=== PATIENT | female | born 1975 | race Caucasian/White ===

== ENCOUNTER 2020-05-22 06:15 | Day surgery (SDC) | payer BC ==
[~2020-05-22] VITALS: Ht 165.1 cm; Wt 100.5 kg
[~2020-05-22 06:15] MED LIST: ATORVASTATIN CA80 MG PO; GLIPIZIDE10 MG PO; HYDROCHLOROTHIA25 MG PO; LANTUS SOL100 UNIT/1 SUB-Q; LEVOTHYROXINE100 MCG PO; LISINOPRIL-HCT1 EACH PO; METOPROLOL SUCC25 MG; METOPROLOL TAR100 MG PO; METOPROLOL TART50 MG PO; MIRALAX17 GM PO; MOBIC15 MG PO; NORCO 5-325 TA1 EACH PO; OSTERA TABLET1 EACH PO
[2020-05-22] MEDS ORDERED: HYDROCODON-ACE1 EA10 PO (08:27)
--- NOTE | 2020-05-22 08:31 | NUR ---
05/22/20 0831 Elena Pan 0824- PT ARRIVES TO PACU EASILY AROUSABLE TO VOICE. PT REPORTS NO PAIN OR NAUSEA. RESP EVEN AND UNLABORED. OXYGEN SAT HIGH 90'S TO 100% ON 6L VIA MASK. 0828- CBG 73. MIRIAN PACHECO CRNA AT THE BEDSIDE AND AWARE. 0830- DR. KWOK AT THE BEDSIDE TO TALK WITH THE PT.
--- NOTE | 2020-05-22 08:38 | NUR ---
PT ALERT, ORIENTED AND SEEMS PREPARED FOR TODAY. ALL QUESTIONS ASKED WERE ANSWERED. GAVE BLESSING, WILL FOLLOW NEEDED
--- NOTE | 2020-05-25 07:18 | OR ---
[facility] [address] [place], [place] [address] Signed DATE OF OPERATION: 05/22/2020 SURGEON: Lydia Mcelroy MD PREOPERATIVE DIAGNOSIS: Right index finger mass. POSTOPERATIVE DIAGNOSIS: Right index finger mass. PROCEDURE PERFORMED: Excision of mass, right hand. JUVENILE COUNSELOR: None. ANESTHESIA: Annemarie block. TOURNIQUET TIME: 20 minutes. BRIEF HISTORY: Flaca is a 44-year-old female with a progressively enlarging mass on the dorsum of the middle phalanx right index finger. It was painful and in the way. She wished to have it removed. Risks and benefits of operative treatment were discussed with her and she elected to proceed. We also discussed the adjacent osteophyte which we would take off. DESCRIPTION OF PROCEDURE: Once consent was obtained, she was taken to the operating room. After adequate anesthesia, the hand was prepped and draped in a standard sterile fashion. A longitudinal dorsal incision was made overlying the mass and carried through skin and subcutaneous tissue and carefully around the mass. The mass was then carefully dissected free of the surrounding soft tissue. It had displaced the central slip of the extensor tendon fair amount ulnarly. It was not densely adherent to any of the surrounding soft tissue. There was no apparent stalk from the DIP joint. It was excised and passed off in total. The osteophyte was then dissected free of soft tissue and was removed using a rongeur. The wound was copiously irrigated with normal saline, closed with 3-0 nylon. The digit was blocked with 0.25% plain Marcaine and the wound was dressed with Electronically Signed By: LYDIA MCELROY MD 05/25/20 0718 PATIENT NAME: FLACA RUBIO OPERATIVE REPORT DATE OF : 73 REPORT #: [id number] PHYSICIAN: LYDIA MCELROY MD PCP: CLAUDIA PIERRE MD REPORT IS CONFIDENTIAL AND NOT TO BE RELEASED WITHOUT AUTHORIZATION [facility] [address] [place], [place] [address] Signed bacitracin, Adaptic, 4 x 8 and tube gauze. She tolerated the procedure well. All sponge, needle, and instrument counts were correct. We did send the mass to Pathology. Lydia Mcelroy MD BA/MODL /[id number] Copies: ~ Electronically Signed By: LYDIA MCELROY MD 05/25/20 0718 PATIENT NAME: FLACA RUBIO OPERATIVE REPORT DATE OF : 73 REPORT #: [id number] PHYSICIAN: LYDIA MCELROY MD PCP: CLAUDIA PIERRE MD REPORT IS CONFIDENTIAL AND NOT TO BE RELEASED WITHOUT AUTHORIZATION
--- NOTE | 2020-05-27 19:55 | PATH ---
[facility] [address] [place], [place] [address] Signed SPECIMEN(S): A RIGHT INDEX FINGER SPECIMEN SOURCE: A. 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 COMMENT: As part of [employer] Quality Improvement Program, this case was reviewed by another member of our pathology staff. NAL:cml:C2NR MICROSCOPIC EXAMINATION: Histologic sections of all submitted blocks are examined by light microscopy. These findings, together with the gross examination, support the pathologic diagnosis. GROSS DESCRIPTION: The specimen, labeled "Flaca Rodriguez," and designated on the requisition "mass right index finger," is received in formalin and consists of 1.5 x 1.3 x 0.9 cm white-maharaj rubbery nodule. The specimen is inked and serially sectioned revealing a white-orange variegated, rubbery cut surface. The specimen is entirely submitted in cassette (A1). FB (under the direct supervision of a pathologist) The Gross Description was prepared using a voice recognition system. The report was reviewed for accuracy; however, sound-alike word errors, addition and/or deletions may occur. If there is any question about this report, please contact Client Services. PERFORMING LABORATORY: The technical component was performed by [employer] [facility], [address] [place] [id number] (Screener And Blender Operator: Chelly Francois MD; CLIA# [id number]). [facility] [address] [address] (CLIA# [id number]). PATIENT NAME: FLACA RODRIGUEZ PATHOLOGY DATE OF : 73 REPORT #: [id number] PHYSICIAN: [facility] PCP: CLAUDIA PIERRE MD REPORT IS CONFIDENTIAL AND NOT TO BE RELEASED WITHOUT AUTHORIZATION [address] [place] [address] Signed Diagnostician: Harriet Dotson MD Pathologist Electronically Signed 05/27/2020 Copies: ~ PATIENT NAME: FLACA RODRIGUEZ PATHOLOGY DATE OF : 73 REPORT #: [id number] PHYSICIAN: [facility] PCP: CLAUDIA PIERRE MD REPORT IS CONFIDENTIAL AND NOT TO BE RELEASED WITHOUT AUTHORIZATION
== END 2020-05-22 09:10 | disposition home or self-care (01) ==
LOC: DS 06:15 → OPS 06:15 → DS 08:00 → OPS 08:00
PROVIDERS: ATTEND Specialist
PROC: 0JBJ0ZZ Excision of Right Hand Subcutaneous Tissue and Fascia, Open Approach (ICD-10-PCS; principal; 2020-05-22 08:00)
DX: D48.1 Neoplasm of uncertain behavior of connective and other soft tissue (principal)
CPT/HCPCS: 01830; J0690; J2250; J2704; J7121

== ENCOUNTER 2020-08-21 05:40 | Day surgery (SDC) | payer BC ==
[~2020-08-21] VITALS: Ht 165.1 cm; Wt 104.0 kg
[~2020-08-21 05:40] MED LIST changes: +HYDROCHLOROTH12.5 MG PO; +HYDROCODON-ACE1 EA10 PO; +LISINOPRIL20 MG PO
[2020-08-21] MEDS ORDERED: HYDROCODON-ACE1 EA10 PO (07:33)
--- NOTE | 2020-08-21 07:36 | NUR ---
08/21/20 0736 Karolina Curry 0728- PT TO PACU IN SUPINE POSITION. EYES OPEN. DENIES PAIN NAUSEA OR DIZZINESS. BREATHING EASY AND UNLABORED. SPO2 >95% ON 6 L O2 VIA SIMPLE MASK. 0735- PT RESTING COMFORTABLY. AWAKENS EASILY TO VOICE. BREATHING EASY AND UNLABORED. SPO2 >95% ON 6 L O2 VIA SIMPLE MASK. O2 TITRATED DOWN TO ROOM AIR. HOB ELEVATED. PT DENIES DIZZINESS OR NAUSEA.
--- NOTE | 2020-08-21 11:15 | OR ---
[facility] [address] [place], [place] [address] Signed DATE OF OPERATION: 08/21/2020 SURGEON: Lydia Mcelroy MD PREOPERATIVE DIAGNOSIS: Left carpal tunnel syndrome. POSTOPERATIVE DIAGNOSIS: Left carpal tunnel syndrome. PROCEDURE PERFORMED: Left carpal tunnel release. WATERMASTER: None. ANESTHESIA: [place] block. TOURNIQUET TIME: 20 minutes. BRIEF HISTORY: Flaca is a 45-year-old female with progressive worsening numbness and tingling in her hand. Nerve conduction studies confirmed carpal tunnel. Risks and benefits of operative treatment were discussed with her and she elected to proceed. DESCRIPTION OF PROCEDURE: Once consent was obtained, she was taken to the operating room. After adequate anesthesia, she was placed on the operating room table. All downside pressure points were well padded. The arm was prepped and draped in the standard sterile fashion. A 1.5 cm incision was made transversely in the distal wrist crease. This was carried through skin and subcutaneous tissue. The palmaris longus was identified, retracted and protected. Under loupe magnification, the transverse carpal ligament was dissected free of overlying soft tissue. It was then released proximally a cm and distally to the distal extent again under direct visualization. It was palpated to ensure complete release and found to be so. The wound was copiously irrigated with normal saline and closed with 3-0 nylon and injected with 9 mL of 0.25% plain Marcaine. The wound was dressed with bacitracin, Adaptic, 4 x 8s, and gauze. She tolerated the procedure well. All sponge, needle, and instrument counts were correct. Electronically Signed By: LYDIA MCELROY MD 08/21/20 1115 PATIENT NAME: FLACA RUBIO OPERATIVE REPORT DATE OF : 73 REPORT #: [id number] PHYSICIAN: LYDIA MCELROY MD PCP: CLAUDIA PIERRE MD REPORT IS CONFIDENTIAL AND NOT TO BE RELEASED WITHOUT AUTHORIZATION [address] [place], [place] [address] Signed Lydia Mcelroy MD BA/MODL /[id number] Copies: ~ Electronically Signed By: LYDIA MCELROY MD 08/21/20 1115 PATIENT NAME: FLACA RUBIO OPERATIVE REPORT DATE OF : 73 REPORT #: [id number] PHYSICIAN: LYDIA MCELROY MD PCP: CLAUDIA PIERRE MD REPORT IS CONFIDENTIAL AND NOT TO BE RELEASED WITHOUT AUTHORIZATION
--- NOTE | 2020-08-26 15:58 | EKG ---
[facility] [address] [facility] [place], [place] [address] Signed Normal sinus rhythm Normal ECG No previous ECGs available Confirmed by CHASIDY PINEDA MD ([id number]) on 08/26/2020 3:58:16 PM Electronically Signed By: CHASIDY PINEDA MD 08/26/20 1558 PATIENT NAME: EYAL RUBIO Electrocardiogram DATE OF : 73 PHYSICIAN: CHASIDY PINEDA MD REPORT #: [id number] REPORT IS CONFIDENTIAL AND NOT TO BE RELEASED WITHOUT AUTHORIZATION
== END 2020-08-21 08:15 | disposition home or self-care (01) ==
LOC: DS 05:40 → OPS 05:40 → DS 06:45 → OPS 08:15 → DS 09:45 → OPS 09:45
PROVIDERS: ATTEND Specialist
PROC: 01N50ZZ Release Median Nerve, Open Approach (ICD-10-PCS; principal; 2020-08-21 06:45)
DX: G56.02 Carpal tunnel syndrome, left upper limb (principal); G56.22 Lesion of ulnar nerve, left upper limb; I10 Essential (primary) hypertension; E11.9 Type 2 diabetes mellitus without complications; E66.01 Morbid (severe) obesity due to excess calories; F17.210 Nicotine dependence, cigarettes, uncomplicated; Z68.38 Body mass index [BMI] 38.0-38.9, adult; Z90.5 Acquired absence of kidney; Z79.4 Long term (current) use of insulin
CPT/HCPCS: 01810; 84703; J0690; J2250; J3010; J7121